=== PATIENT | female | born 1990 | race Caucasian/White ===

== ENCOUNTER 2018-10-03 15:27 | Emergency (ER) | payer SELFPAY ==
[2018-10-03] MEDS ORDERED: Adacel (T-DAP) 0.5 ML SYRINGE ONE (16:00)
== END 2018-10-03 16:39 | disposition home or self-care (01) ==
LOC: ERS 15:27
DX: S01.21XA Laceration without foreign body of nose, initial encounter (principal); S01.411A Laceration without foreign body of right cheek and temporomandibular area, initial encounter; Z23 Encounter for immunization; W55.32XA Struck by other hoof stock, initial encounter; Y99.0 Civilian activity done for income or pay
CPT/HCPCS: 12011; 90471; 90715

== ENCOUNTER 2018-11-19 10:26 | Emergency (ER) | payer OTHER, SELFPAY ==
[2018-11-19] MEDS ORDERED: Lidocaine 1% (PF) 30 ML VIAL ONE (12:00)
[2018-11-19] MEDS ORDERED: Bupivacaine 0.5% 10 ML VIAL ONE (12:03)
--- NOTE | 2018-11-19 12:04 | RAD ---
LEFT LONG FINGER RADIOGRAPH (THREE VIEWS): Indication: Crush injury to left middle finger in a livestock gate. The patient has a laceration to t he left long finger. FINDINGS: No comparisons are available. There is a laceration involving the ulnar aspect of the left long finger at the level of the PIP join t extending to the level of the proximal phalanx. No radiopaque foreign body is evident. No acute fra cture is evident. IMPRESSION: Soft tissue laceration left long finger without acute osseous abnormality. No radiopaque foreign body . POS: [facility]
[2018-11-19] MEDS ORDERED: Bacitracin Zinc 1 Packet ONE (13:09)
== END 2018-11-19 13:24 | disposition home or self-care (01) ==
LOC: ERS 10:26
DX: S61.213A Laceration without foreign body of left middle finger without damage to nail, initial encounter (principal); W23.0XXA Caught, crushed, jammed, or pinched between moving objects, initial encounter
CPT/HCPCS: 12002; J2001; J3490

== ENCOUNTER 2018-11-29 08:59 | Emergency (ER) | payer SELFPAY | END 2018-11-29 10:19 | disposition home or self-care (01) | LOC: ERS 08:59 | DX: S61.213D Laceration without foreign body of left middle finger without damage to nail, subsequent encounter (principal) | CPT/HCPCS: 99282 ==